=== PATIENT | male | born 1945 | race Caucasian/White ===

== ENCOUNTER 2024-07-10 08:22 | Inpatient (IN) | payer MEDICARE ==
[2024-07-10] VITALS (9 sets, daily range): BP systolic 88–109; BP diastolic 58–68; PULSE 87–126; RESP 11–49; TEMP 97–97.1; O2SAT 93–95
[~2024-07-10] VITALS: Ht 177.8 cm; Wt 102.1 kg
[~2024-07-10 08:22] MED LIST: AMLO5TAB21 PO; APIX5TAB3 PO; ESOM40CA PO; FLUT1DIS10 INH; HYDR-4353 PO; IPRA3AMP9 NEB; LEVO-65 PO; LOSA-422 PO; METH-35 PO; PRED10TA23 PO; [UNRECOGNIZED DRUG - CODE] INH; combivent
[2024-07-10] MEDS ORDERED: diltiazem 5mg/ml 5ml inj. IV ONE (08:34)
[2024-07-10] MEDS: diltiazem 5mg/ml 5ml inj. IV ONE ×2 (08:38→09:24)
[2024-07-10] MEDS: magnesium sulf-water 2g/50mL 50 ML IV ONE (08:41)
[2024-07-10 08:47] LABS: BASOPHILS % (AUTO) 0.1 % (0-1); EOSINOPHILS % (AUTO) 0.1 % (0-6); HEMATOCRIT 47.9 % (42.0-52.0); HEMOGLOBIN 16.4 g/dl (14.0-17.9); LYMPHOCYTES # (AUTO) 1.4 X10'3 (1.1-4.8); LYMPHOCYTES % (AUTO) 4.2 % (21-51); MEAN CORPUSCULAR HEMOGLOBIN 32.9 PG (27.0-31.0); MEAN CORPUSCULAR HGB CONC 34.3 g/dL (33.0-36.5); MEAN CORPUSCULAR VOLUME 95.8 FL (78-98); MEAN PLATELET VOLUME 6.9 FL (7.4-10.4); MONOCYTES # (AUTO) 1.5 X10'3 (0-0.9); MONOCYTES % (AUTO) 4.5 % (2-12); NEUTROPHILS # (AUTO) 30.8 X10'3 (1.8-7.7); NEUTROPHILS % (AUTO) 91.1 % (42-75); PLATELET COUNT 354 X10'3 (140-440); RED CELL DISTRIBUTION WIDTH 14.2 % (11.5-14.5)
[2024-07-10 08:49] LABS: WHITE BLOOD COUNT 33.8 X10'3 (4.5-11.0)
[2024-07-10 08:59] LABS: ALBUMIN 1.7 G/DL (3.4-5.0); ANION GAP 17 (8-16); BLOOD UREA NITROGEN 43 MG/DL (7-18); BUN/CREATININE RATIO 28.9 (10.0-20.0); CALCIUM 9.3 MG/DL (8.5-10.1); CHLORIDE 92 MMOL/L (99-107); CREATININE 1.49 MG/DL (0.60-1.10); GLUCOSE 196 MG/DL (70-104); SODIUM 127 MMOL/L (135-145); TOTAL CARBON DIOXIDE 18.3 MMOL/L (24-32); eCRCL 42 ML/MIN; eGFR 46 ML/MIN
[2024-07-10] MEDS: CefTRIAXone 2gm/D5W 50ml BAG 50 ML IV ONE (08:59)
[2024-07-10 09:01] LABS: POTASSIUM 3.9 MMOL/L (3.5-5.1)
[2024-07-10 09:13] LABS: PLATELET ESTIMATE NORMAL; TOTAL CELLS COUNTED 100
[2024-07-10 09:14] LABS: BURR CELLS 2+; SMUDGE CELLS FEW
[2024-07-10 09:14] LABS: ABG BASE EXCESS -5.8 mmol/L (-2.0-2.0); ABG HCO3 16.4 mmol/L (22.0-26.0); ABG OXYGEN SATURATION 99.3 % (92-98.5); ABG PCO2 (T) 24.9 mmHg (35.0-48.0); ABG PH (T) 7.436 (7.340-7.440); ABG PO2 (T) 256.9 mmHg (75.0-100.0); ALLEN'S TEST POSITIVE; FCOHb 0.1 % (0.5-1.5); FHHb 0.7 % (0.0-5.0); FMetHb 0.4 % (0.0-1.5); FO2Hb 98.8 % (94-97); MODE MASK - BIPAP; PATIENT TEMPERATURE 36.6; RESPIRATORY RATE 10 b/min; TIDAL VOLUME 1035 mL; TOTAL HEMOGLOBIN 15.9 G/dl (14.0-17.9)
[2024-07-10] MEDS: diltiazem-NS 100mg/100ml 100 ML IV SCH (09:26)
[2024-07-10] MEDS: normal saline 1000ML IV soln IVB ONE (09:27)
[2024-07-10] MEDS ORDERED: acetaminophen 650mg rectal suppository RC PRN (12:45)
[2024-07-10] MEDS ORDERED: ondansetron/PF 4mg/2ml inj IV PRN (12:45)
[2024-07-10] MEDS ORDERED: morphine 2 MG/ML inj. syringe IV PRN (12:45)
[2024-07-10] MEDS ORDERED: mag hydrox/Alum hydrox/simeth 30ml oral suspension PO PRN (12:45)
[2024-07-10] MEDS ORDERED: ondansetron 4mg rapidly disintigrating tab PO PRN (12:45)
[2024-07-10] MEDS ORDERED: magnesium hydroxide 30ml (MOM) UD suspension PO PRN (12:45)
[2024-07-10] MEDS ORDERED: diphenhydrAMINE 50 mg/ml inj IV PRN (12:45)
[2024-07-10] MEDS ORDERED: bisacodyl 10mg suppository rectal RC PRN (12:45)
[2024-07-10] MEDS ORDERED: diphenhydrAMINE 25mg capsule PO PRN (12:45)
[2024-07-10] MEDS: normal saline 1000ml 1,000 ML IV SCH (12:45)
[2024-07-10] MEDS ORDERED: acetaminophen 325mg tablet PO PRN ×2 (12:45)
[2024-07-10 13:29] LABS: MAGNESIUM 1.6 MG/DL (1.5-2.4)
[2024-07-10 14:26] LABS: APTT 24 SECONDS (22-32); D-DIMER 3.86 MG/L FEU (0-0.50); INR 1.2 INR; PROTHROMBIN TIME 12.1 SECONDS (9.0-12.0)
[2024-07-10 14:37] LABS: CREATINE KINASE 26 U/L (39-308); THYROID STIMULATING HORMONE 0.95 ulU/ml (0.34-4.50)
[2024-07-10 14:38] LABS: C-REACTIVE PROTEIN 26.95 MG/DL (0.0-0.5)
[2024-07-10] MEDS: docusate sod 100mg capsule PO SCH (20:00)
[2024-07-10] MEDS: dexamethasone 4mg/ml inj IV SCH (20:24)
[2024-07-10] MEDS: ipratropium/albuterol 3ml nebule NEB PRN (20:36)
[2024-07-11] VITALS (26 sets, daily range): BP systolic 88–114; BP diastolic 50–79; PULSE 83–132; RESP 16–32; TEMP 97.2–97.9; O2SAT 93–96
[2024-07-11] MEDS: HYDROcodone/acetaminophen 5mg/325mg tablet PO PRN (00:32)
[2024-07-11 06:11] LABS: BASOPHILS % (AUTO) 0.2 % (0-1); EOSINOPHILS % (AUTO) 0 % (0-6); HEMATOCRIT 39.1 % (42.0-52.0); HEMOGLOBIN 13.3 g/dl (14.0-17.9); LYMPHOCYTES # (AUTO) 0.6 X10'3 (1.1-4.8); LYMPHOCYTES % (AUTO) 2.8 % (21-51); MEAN CORPUSCULAR HEMOGLOBIN 32.7 PG (27.0-31.0); MEAN CORPUSCULAR VOLUME 96.2 FL (78-98); MEAN PLATELET VOLUME 6.8 FL (7.4-10.4); MONOCYTES # (AUTO) 0.7 X10'3 (0-0.9); MONOCYTES % (AUTO) 3.1 % (2-12); NEUTROPHILS # (AUTO) 20.5 X10'3 (1.8-7.7); NEUTROPHILS % (AUTO) 93.9 % (42-75); PLATELET COUNT 231 X10'3 (140-440); RED BLOOD COUNT 4.07 X10'6 (4.70-6.10); RED CELL DISTRIBUTION WIDTH 13.9 % (11.5-14.5); WHITE BLOOD COUNT 21.8 X10'3 (4.5-11.0)
[2024-07-11 06:27] LABS: ALANINE AMINOTRANSFERASE 138 U/L (12-78); ALBUMIN 1.2 G/DL (3.4-5.0); ALBUMIN/GLOBULIN RATIO 0.3 (1.1-1.5); ALKALINE PHOSPHATASE 115 IU/L (46-116); ANION GAP 11 (8-16); ASPARTATE AMINO TRANSFERASE 94 U/L (10-37); BILIRUBIN,TOTAL 0.7 MG/DL (0.1-1.0); BLOOD UREA NITROGEN 31 MG/DL (7-18); BUN/CREATININE RATIO 37.3 (10.0-20.0); CHLORIDE 98 MMOL/L (99-107); CHOL/HDL RATIO 3.4 (0.00-4.99); CHOLESTEROL 67 MG/DL (0-200); CREATININE 0.83 MG/DL (0.60-1.10); GLUCOSE 167 MG/DL (70-104); HDL CHOLESTEROL 20 MG/DL (35-60); LDL CHOLESTEROL 33 MG/DL (50-100); POTASSIUM 3.4 MMOL/L (3.5-5.1); SODIUM 129 MMOL/L (135-145); TOTAL CARBON DIOXIDE 19.6 MMOL/L (24-32); TOTAL PROTEIN 5.6 G/DL (6.4-8.2); TRIGLYCERIDES 74 MG/DL (20-135); eCRCL 76 ML/MIN; eGFR 90 ML/MIN
[2024-07-11] MEDS: pantoprazole 40mg Tablet.DR PO SCH (08:55)
[2024-07-11] MEDS: CefTRIAXone 2gm/D5W 50ml BAG 50 ML IV SCH (08:56)
[2024-07-11] MEDS: azithromycin/NS 500mg/250ml 250 ML IV SCH (08:56)
[2024-07-11] MEDS: guaiFENesin 200mg/20mg codeine phos 10ml UD oral syrup PO PRN (10:24)
[2024-07-11] MEDS: diltiazem-NS 100mg/100ml 100 ML IV SCH (14:08)
[2024-07-11] MEDS ORDERED: potassium Cl 20 mEq SR tablet PO PRN (14:30)
[2024-07-11] MEDS ORDERED: magnesium sulf-water 4G/100mL 100 ML IV PRN (14:30)
[2024-07-11] MEDS ORDERED: magnesium sulf-water 2g/50mL 50 ML IV PRN (14:30)
[2024-07-11] MEDS ORDERED: potassium Cl 40MEQ/1/2NS 520ml 520 ML IV PRN (14:30)
[2024-07-11] MEDS: potassium Cl 20 mEq SR tablet PO PRN (14:52)
[2024-07-11] MEDS: LidoCAINE 2% Topical Jelly 11mL syringe (UROJET) TOP ONE (17:45)
[2024-07-12] VITALS (17 sets, daily range): BP systolic 97–138; BP diastolic 63–85; PULSE 74–111; RESP 18–31; TEMP 97.3–98.6; O2SAT 88–96
[2024-07-12 07:17] LABS: BASOPHILS % (AUTO) 0.1 % (0-1); EOSINOPHILS % (AUTO) 0 % (0-6); HEMATOCRIT 38.4 % (42.0-52.0); HEMOGLOBIN 12.8 g/dl (14.0-17.9); LYMPHOCYTES # (AUTO) 0.8 X10'3 (1.1-4.8); LYMPHOCYTES % (AUTO) 3.9 % (21-51); MEAN CORPUSCULAR HGB CONC 33.4 g/dL (33.0-36.5); MEAN CORPUSCULAR VOLUME 95.9 FL (78-98); MEAN PLATELET VOLUME 6.9 FL (7.4-10.4); MONOCYTES # (AUTO) 0.7 X10'3 (0-0.9); MONOCYTES % (AUTO) 3.5 % (2-12); NEUTROPHILS # (AUTO) 18.1 X10'3 (1.8-7.7); NEUTROPHILS % (AUTO) 92.5 % (42-75); PLATELET COUNT 269 X10'3 (140-440); WHITE BLOOD COUNT 19.6 X10'3 (4.5-11.0)
[2024-07-12 07:18] LABS: ALANINE AMINOTRANSFERASE 152 U/L (12-78); ALBUMIN 1.3 G/DL (3.4-5.0); ALBUMIN/GLOBULIN RATIO 0.3 (1.1-1.5); ALKALINE PHOSPHATASE 104 IU/L (46-116); ANION GAP 7 (8-16); ASPARTATE AMINO TRANSFERASE 99 U/L (10-37); BILIRUBIN,TOTAL 0.4 MG/DL (0.1-1.0); BLOOD UREA NITROGEN 24 MG/DL (7-18); BUN/CREATININE RATIO 34.8 (10.0-20.0); CALCIUM 8.2 MG/DL (8.5-10.1); CHLORIDE 101 MMOL/L (99-107); CREATININE 0.69 MG/DL (0.60-1.10); GLUCOSE 181 MG/DL (70-104); SODIUM 131 MMOL/L (135-145); TOTAL CARBON DIOXIDE 22.6 MMOL/L (24-32); TOTAL PROTEIN 5.8 G/DL (6.4-8.2); eCRCL 91 ML/MIN; eGFR > 90 ML/MIN
[2024-07-12] MEDS: K and/or MAG REPLACEMENT MC SCH (08:00)
[2024-07-12] MEDS: diltiazem CD 180mg cap (once-daily) PO SCH (13:32)
[2024-07-12] MEDS: methylPREDNISolone sod succ 125mg/2ml vial IV ONE (13:32)
[2024-07-12] MEDS: methylPREDNISolone sod succ 125mg/2ml vial IV SCH (16:38)
[2024-07-12] MEDS: morphine 2 MG/ML inj. syringe IV ONE (20:18)
[2024-07-12] MEDS: nitroGLYCERIN 0.4mg SUBLingual tab SL PRN (20:19)
[2024-07-12] MEDS: HYDROmorphone 1 mg/ml syringe IM ONE (20:37)
[2024-07-12] MEDS: aspirin 81mg, enteric-coated 1 TAB TABLET.DR PO ONE ×2 (21:03→21:08)
[2024-07-12] MEDS: apixaban 5mg tablet PO SCH (21:13)
[2024-07-12] MEDS: temazepam 15mg capsule PO PRN (21:13)
[2024-07-13] VITALS (15 sets, daily range): BP systolic 101–136; BP diastolic 63–85; PULSE 81–104; RESP 15–22; TEMP 96.8–98.7; O2SAT 92–97
[2024-07-13] MEDS: pantoprazole 40 MG vial IV ONE (00:29)
[2024-07-13] MEDS: furosemide 40mg/4ml inj IV ONE (00:39)
[2024-07-13] MEDS: diltiazem CD 180mg cap (once-daily) PO ONE (04:39)
[2024-07-13 05:21] LABS: BASOPHILS % (AUTO) 0 % (0-1); EOSINOPHILS % (AUTO) 0 % (0-6); HEMATOCRIT 42.9 % (42.0-52.0); HEMOGLOBIN 14.7 g/dl (14.0-17.9); LYMPHOCYTES # (AUTO) 0.6 X10'3 (1.1-4.8); LYMPHOCYTES % (AUTO) 2.6 % (21-51); MEAN CORPUSCULAR HEMOGLOBIN 32.7 PG (27.0-31.0); MEAN CORPUSCULAR HGB CONC 34.3 g/dL (33.0-36.5); MEAN CORPUSCULAR VOLUME 95.5 FL (78-98); MEAN PLATELET VOLUME 6.4 FL (7.4-10.4); MONOCYTES # (AUTO) 0.5 X10'3 (0-0.9); MONOCYTES % (AUTO) 2.4 % (2-12); NEUTROPHILS # (AUTO) 20.4 X10'3 (1.8-7.7); PLATELET COUNT 284 X10'3 (140-440); RED BLOOD COUNT 4.49 X10'6 (4.70-6.10); RED CELL DISTRIBUTION WIDTH 13.9 % (11.5-14.5); WHITE BLOOD COUNT 21.5 X10'3 (4.5-11.0)
[2024-07-13 05:47] LABS: ALANINE AMINOTRANSFERASE 157 U/L (12-78); ALBUMIN 1.7 G/DL (3.4-5.0); ALBUMIN/GLOBULIN RATIO 0.4 (1.1-1.5); ALKALINE PHOSPHATASE 111 IU/L (46-116); ANION GAP 8 (8-16); ASPARTATE AMINO TRANSFERASE 54 U/L (10-37); BILIRUBIN,TOTAL 0.5 MG/DL (0.1-1.0); BLOOD UREA NITROGEN 20 MG/DL (7-18); CALCIUM 8.5 MG/DL (8.5-10.1); CHLORIDE 99 MMOL/L (99-107); CREATININE 0.91 MG/DL (0.60-1.10); GLUCOSE 209 MG/DL (70-104); SODIUM 134 MMOL/L (135-145); TOTAL CARBON DIOXIDE 26.6 MMOL/L (24-32); TOTAL PROTEIN 6.5 G/DL (6.4-8.2); eCRCL 69 ML/MIN; eGFR 81 ML/MIN
[2024-07-13] MEDS: losartan 25mg tablet PO SCH (08:01)
[2024-07-13] MEDS: EMPAGLIFLOZIN 10 MG TABLET PO SCH (08:02)
[2024-07-13] MEDS: metoprolol succinate 25mg (24-HOUR) SR. Tablet PO SCH (08:02)
[2024-07-13 08:35] LABS: BILIRUBIN,URINE NEGATIVE (Neg); CLARITY,URINE CLEAR (Clear); COLOR,URINE STRAW (Yellow); GLUCOSE, URINE 250 mg/dl (Neg); KETONES,URINE NEGATIVE (Neg); LEUKOCYTE ESTERASE ,URINE NEGATIVE (Neg); NITRITES, URINE NEGATIVE (Neg); OCCULT BLOOD,URINE NEGATIVE (Neg); PROTEIN,URINE NEGATIVE (Neg); UROBILINOGEN,URINE 0.2 E.U/dL (0.2-1.0)
[2024-07-13 08:47] LABS: UA COLLECTION TYPE NON-SPECIFIED
[2024-07-13] MEDS: ipratropium/albuterol 3ml nebule NEB SCH (12:03)
[2024-07-13] MEDS: magnesium Cl slow-release 64mg tablet PO PRN (13:39)
[2024-07-13] MEDS: magnesium sulf-water 2g/50mL 50 ML IV ONE (15:35)
[2024-07-14] VITALS (8 sets, daily range): BP systolic 109–125; BP diastolic 52–76; PULSE 75–95; RESP 16–19; TEMP 97.1–98.1; O2SAT 93–96
[2024-07-14 06:37] LABS: BASOPHILS # (AUTO) 0.1 X10'3 (0-0.2); BASOPHILS % (AUTO) 0.5 % (0-1); EOSINOPHILS % (AUTO) 0.1 % (0-6); HEMATOCRIT 39.2 % (42.0-52.0); HEMOGLOBIN 13.4 g/dl (14.0-17.9); LYMPHOCYTES # (AUTO) 0.5 X10'3 (1.1-4.8); LYMPHOCYTES % (AUTO) 3.7 % (21-51); MEAN CORPUSCULAR HEMOGLOBIN 32.6 PG (27.0-31.0); MEAN CORPUSCULAR HGB CONC 34.1 g/dL (33.0-36.5); MEAN CORPUSCULAR VOLUME 95.6 FL (78-98); MEAN PLATELET VOLUME 6.5 FL (7.4-10.4); MONOCYTES # (AUTO) 0.6 X10'3 (0-0.9); MONOCYTES % (AUTO) 3.8 % (2-12); NEUTROPHILS # (AUTO) 13.3 X10'3 (1.8-7.7); NEUTROPHILS % (AUTO) 91.9 % (42-75); PLATELET COUNT 262 X10'3 (140-440); RED CELL DISTRIBUTION WIDTH 13.7 % (11.5-14.5); WHITE BLOOD COUNT 14.4 X10'3 (4.5-11.0)
[2024-07-14 06:47] LABS: ALANINE AMINOTRANSFERASE 97 U/L (12-78); ALBUMIN 1.6 G/DL (3.4-5.0); ALBUMIN/GLOBULIN RATIO 0.4 (1.1-1.5); ALKALINE PHOSPHATASE 84 IU/L (46-116); ANION GAP 6 (8-16); ASPARTATE AMINO TRANSFERASE 19 U/L (10-37); BILIRUBIN,TOTAL 0.5 MG/DL (0.1-1.0); BLOOD UREA NITROGEN 26 MG/DL (7-18); BUN/CREATININE RATIO 34.7 (10.0-20.0); CALCIUM 7.9 MG/DL (8.5-10.1); CHLORIDE 99 MMOL/L (99-107); CREATININE 0.75 MG/DL (0.60-1.10); GLUCOSE 181 MG/DL (70-104); POTASSIUM 3.9 MMOL/L (3.5-5.1); SODIUM 134 MMOL/L (135-145); TOTAL CARBON DIOXIDE 29.1 MMOL/L (24-32); TOTAL PROTEIN 5.7 G/DL (6.4-8.2); eCRCL 84 ML/MIN; eGFR > 90 ML/MIN
[2024-07-14] MEDS: methylPREDNISolone sod succ 125mg/2ml vial IV SCH (08:37)
[2024-07-14 12:36] LABS: MAGNESIUM 1.7 MG/DL (1.5-2.4)
[2024-07-14] MEDS ORDERED: CEFD300C3 PO (17:52)
[2024-07-14] MEDS ORDERED: METO-384 PO (17:52)
[2024-07-14] MEDS ORDERED: EMPA10TA PO (17:52)
[2024-07-20] MEDS ORDERED: AMI200T PO (10:09)
== END 2024-07-14 13:52 | DRG 871 ==
LOC: ER 08:22 → ED HOLD 12:49 → PCU 3S 17:20
PROVIDERS: ADMIT Family Medicine; ATTEND Family Medicine
PROC: 5A09357 Assistance with Respiratory Ventilation, Less than 24 Consecutive Hours, Continuous Positive Airway Pressure (ICD-10-PCS; 2024-07-10)
PROC: B32T1ZZ Computerized Tomography (CT Scan) of Left Pulmonary Artery using Low Osmolar Contrast (ICD-10-PCS; principal; 2024-07-12)
PROC: B3201ZZ Computerized Tomography (CT Scan) of Thoracic Aorta using Low Osmolar Contrast (ICD-10-PCS; 2024-07-12)
PROC: B32S1ZZ Computerized Tomography (CT Scan) of Right Pulmonary Artery using Low Osmolar Contrast (ICD-10-PCS; 2024-07-12)
PROC: CB1YYZZ Planar Nuclear Medicine Imaging of Respiratory System using Other Radionuclide (ICD-10-PCS; 2024-07-12)
DX: A41.9 Sepsis, unspecified organism (principal); I50.33 Acute on chronic diastolic (congestive) heart failure; J18.9 Pneumonia, unspecified organism; J96.01 Acute respiratory failure with hypoxia; E87.1 Hypo-osmolality and hyponatremia; J44.0 Chronic obstructive pulmonary disease with (acute) lower respiratory infection; J44.1 Chronic obstructive pulmonary disease with (acute) exacerbation; I48.20 Chronic atrial fibrillation, unspecified; G89.4 Chronic pain syndrome; K21.9 Gastro-esophageal reflux disease without esophagitis; Z20.822 Contact with and (suspected) exposure to COVID-19; M54.9 Dorsalgia, unspecified; E78.5 Hyperlipidemia, unspecified; I11.0 Hypertensive heart disease with heart failure; Z88.0 Allergy status to penicillin; Z87.891 Personal history of nicotine dependence; Z79.899 Other long term (current) drug therapy; Z79.01 Long term (current) use of anticoagulants; Z86.16 Personal history of COVID-19; Z85.820 Personal history of malignant melanoma of skin
CPT/HCPCS: 36415; 36600; 71045; 71250; 71275; 74176; 78582; 80048; 80053; 80061; 81003; 82550; 82803; 83036; 83605; 83735; 83880; 84100; 84145; 84443; 84484; 85007; 85018; 85025; 85379; 85610; 85651; 85730; 86140; 87040; 87081; 87811; 93005; 94640; 94660; 94664; 94668; 94760; 96365; 96367; 96375; 97110; 97161; 99285; A4615; A4620; A6213; A6449; A6455; A6590; A9539; A9540; C1758; G0378; J0456; J0696; J1100; J1170; J1940; J2270; J2470; J2919; J3490; J7030

== ENCOUNTER 2024-07-24 08:33 | Inpatient (IN) | payer MEDICARE ==
[2024-07-24] VITALS (21 sets, daily range): BP systolic 80–133; BP diastolic 41–99; PULSE 73–135; RESP 15–31; TEMP 96.8–99; O2SAT 95–100
[~2024-07-24] VITALS: Ht 188 cm; Wt 112.0 kg
[~2024-07-24 08:33] MED LIST changes: +AMI200T PO; +EMPA10TA PO; -LEVO-65 PO; -METH-35 PO; +METO-384 PO
--- NOTE | 2024-07-24 09:03 | NUR ---
MD aware of low BP 72/49 and black tarry stool while taking rectal temp
--- NOTE | 2024-07-24 09:11 | NUR ---
at bedside - she was asked about the limb alert bracelet on the left arm. 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
[2024-07-24 09:57] LABS: ABG BASE EXCESS 0.3 mmol/L (-2.0-3.0); ABG HCO3 23.5 mmol/L (21.0-28.0); ABG OXYGEN SATURATION 98.7 % (94.0-98.0); ABG PH (T) 7.498 (7.350-7.450); ABG PO2 (T) 133.6 mmHg (83.0-108.0); ALLEN'S TEST POSITIVE; FCOHb 0.3 % (0.5-1.5); FHHb 1.3 % (0.0-5.0); FLOW 6 L/min; FMetHb 0.7 % (0.0-1.5); FO2Hb 97.7 % (94.0-98.0); MODE MASK - SIMPLE; TOTAL HEMOGLOBIN 5.7 G/dl (13.5-17.5)
[2024-07-24] MEDS: normal saline 1000ML IV soln IVB ONE (10:27)
--- NOTE | 2024-07-24 10:57 | NUR ---
pT. INCONTINENT OF LG AMT BLACK LOOSE STOOL. PT. CLEANSED AND FOAM PADS PLACED ON BUTTOCKS. BUTTOCKS REDDENED UNABLE TO TAKE PICTURES D/T CAMERA BROKEN NO OTHER CAMERA AVAILABLE IN DEPARTMENT.
--- NOTE | 2024-07-24 11:00 | NUR ---
16 FR TEMP GLASGOW CATH PLACED BY VIKKI RN WITH SL. CLOUDY URINE RETURNED. PT. DIEGO WELL
--- NOTE | 2024-07-24 11:39 | NUR ---
INC. OF SMALL AMT BLACK LOOSE STOOL, CLEANSED AND REPOSITIONED.
[2024-07-24 12:40] LABS: MEAN CORPUSCULAR HEMOGLOBIN 32.8 PG (27.0-31.0); MEAN CORPUSCULAR HGB CONC 31.6 g/dL (33.0-36.5); MEAN CORPUSCULAR VOLUME 103.6 FL (78-98); MEAN PLATELET VOLUME 6.8 FL (7.4-10.4); PLATELET COUNT 246 X10'3 (140-440); RED BLOOD COUNT 1.26 X10'6 (4.70-6.10); RED CELL DISTRIBUTION WIDTH 16.9 % (11.5-14.5)
[2024-07-24] MEDS ORDERED: tranexamic acid inj. 1,000 MG in normal saline 100ml IV soln 90 ML IV ONE (12:40)
[2024-07-24 12:45] LABS: HEMOGLOBIN 4.1 g/dl (14.0-17.9); WHITE BLOOD COUNT 25.2 X10'3 (4.5-11.0)
[2024-07-24] MEDS: tranexamic acid 1gm/0.7% sal. 100 ML IV ONE (12:49)
[2024-07-24 12:56] LABS: ALANINE AMINOTRANSFERASE 24 U/L (12-78); ALBUMIN 1.2 G/DL (3.4-5.0); ALBUMIN/GLOBULIN RATIO 0.6 (1.1-1.5); ALKALINE PHOSPHATASE 27 IU/L (46-116); ANION GAP 10 (8-16); ASPARTATE AMINO TRANSFERASE 13 U/L (10-37); BILIRUBIN,TOTAL 0.3 MG/DL (0.1-1.0); BLOOD UREA NITROGEN 39 MG/DL (7-18); BUN/CREATININE RATIO 42.4 (10.0-20.0); CALCIUM 6.3 MG/DL (8.5-10.1); CHLORIDE 108 MMOL/L (99-107); CREATININE 0.92 MG/DL (0.60-1.10); GLUCOSE 181 MG/DL (70-104); NUCLEATED RED BLOOD CELLS 3 /100WBC (0-0); PLATELET ESTIMATE NORMAL; POTASSIUM 3.8 MMOL/L (3.5-5.1); PRO BRAIN NATRIURETIC PEPTIDE 248 PG/ML (0-450); SMUDGE CELLS FEW; SODIUM 137 MMOL/L (135-145); TOTAL CARBON DIOXIDE 19.3 MMOL/L (24-32); TOTAL CELLS COUNTED 100; TOTAL PROTEIN 3.1 G/DL (6.4-8.2); eCRCL 77 ML/MIN; eGFR 80 ML/MIN
[2024-07-24 12:57] LABS: ANISOCYTOSIS 1+; POLYCHROMASIA 3+
[2024-07-24] MEDS ORDERED: APIX5TAB3 PO (13:19)
[2024-07-24] MEDS ORDERED: MELA3TAB70 PO (13:19)
[2024-07-24] MEDS ORDERED: MOME13HF11 INH (13:19)
[2024-07-24] MEDS ORDERED: AMI200T PO (13:19)
[2024-07-24] MEDS ORDERED: VANC1VIA38 IV (13:19)
[2024-07-24] MEDS ORDERED: CEFE2VIA IV (13:19)
[2024-07-24] MEDS ORDERED: ATR0.5NEB IH (13:19)
[2024-07-24] MEDS ORDERED: CLOT10TR6 PO (13:19)
[2024-07-24] MEDS ORDERED: PANT-47 PO (13:19)
[2024-07-24] MEDS ORDERED: METO-384 PO (13:19)
[2024-07-24] MEDS ORDERED: pantoprazole 40mg IV 80 MG in normal saline 100ml IV soln 100 ML IV ONE (13:25)
[2024-07-24] MEDS: normal saline 1000ml 1,000 ML IVB ONE (13:30)
[2024-07-24] MEDS ORDERED: ipratropium 0.5 MG/2.5ML nebule IH PRN (13:30)
[2024-07-24] MEDS: clotrimazole 10mg troche MM SCH (14:00)
--- NOTE | 2024-07-24 14:02 | NUR ---
1ST UNIT PRBC INFUSED THROUGH RAPID INFUSER, RN X2 (GAVIN) AND DR. WALTERS AT BEDSIDE THROUGHOUT TRANSFUSION. PT. DIEGO WELL WITHOUT REACTION NOTED.
[2024-07-24] MEDS ORDERED: potassium Cl 40MEQ/1/2NS 520ml 520 ML IV PRN ×2 (14:10→15:25)
[2024-07-24] MEDS ORDERED: acetaminophen 325mg tablet PO PRN ×2 (14:10→15:25)
[2024-07-24] MEDS ORDERED: magnesium hydroxide 30ml (MOM) UD suspension PO PRN ×2 (14:10→15:25)
[2024-07-24] MEDS ORDERED: mag hydrox/Alum hydrox/simeth 30ml oral suspension PO PRN ×2 (14:10→15:25)
[2024-07-24] MEDS: normal saline 1000ml 1,000 ML IV SCH (14:10)
[2024-07-24] MEDS ORDERED: acetaminophen 650mg rectal suppository RC PRN (14:10)
[2024-07-24] MEDS: pantoprazole 40 MG vial IV ONE (14:53)
[2024-07-24] MEDS: pantoprazole 40MG/NS 100ML BAG 100 ML IV SCH (14:54)
--- NOTE | 2024-07-24 15:10 | NUR ---
RELIEVING RN FOR LUNCH, PT IS RESTING QUIETLY ON GURNEY, GCS 15 ALERT AND ORIENTED X3, RESP EVEN AND UNLABORED, SKIN IS NOW PINK, WARM AND DRY AFTER 2 UNITS OF PRBC. PT IS NOW RECEIVING FFP, USING DOWN TIME FORM. PT IS TOLERATING INFUSION WELL, NO S/S OF RX TO BLOOD PRODUCT
[2024-07-24] MEDS ORDERED: magnesium sulf-water 4G/100mL 100 ML IV PRN (15:25)
[2024-07-24] MEDS ORDERED: ondansetron/PF 4mg/2ml inj IV PRN (15:25)
[2024-07-24] MEDS ORDERED: potassium Cl 20 mEq SR tablet PO PRN ×2 (15:25)
[2024-07-24] MEDS ORDERED: magnesium Cl slow-release 64mg tablet PO PRN (15:25)
[2024-07-24] MEDS ORDERED: magnesium sulf-water 2g/50mL 50 ML IV PRN (15:25)
[2024-07-24 16:25] LABS: MAGNESIUM 1.4 MG/DL (1.5-2.4); POTASSIUM 4.3 MMOL/L (3.5-5.1)
--- NOTE | 2024-07-24 16:46 | NUR ---
RECEIVED REPORT FROM FELIX ARRIAGA RN
--- NOTE | 2024-07-24 17:47 | NUR ---
Patients bedside, per all of patients belongings are still at [facility]
--- NOTE | 2024-07-24 18:28 | NUR ---
Patient in room CICU 2013. I have received report from Christi Brand RN and had the opportunity to ask questions and assume patient care.
[2024-07-24 18:34] LABS: OCCULT BLOOD STOOL POSITIVE (Neg)
[2024-07-24] MEDS: HUM PROTHROMB CPLX-LANS 2,000 UNIT in IV piggyback 80 ML IV ONE (19:10)
[2024-07-24] MEDS: budesonide 0.5mg/2ml UD nebule IH SCH (19:32)
[2024-07-24] MEDS: albuterol 2.5 MG/3 ML nebule NEB PRN (19:32)
[2024-07-24 19:44] LABS: ALANINE AMINOTRANSFERASE 47 U/L (12-78); ALBUMIN 1.4 G/DL (3.4-5.0); ALBUMIN/GLOBULIN RATIO 0.7 (1.1-1.5); ALKALINE PHOSPHATASE 30 IU/L (46-116); ANION GAP 6 (8-16); ASPARTATE AMINO TRANSFERASE 53 U/L (10-37); BILIRUBIN,TOTAL 0.6 MG/DL (0.1-1.0); BLOOD UREA NITROGEN 47 MG/DL (7-18); BUN/CREATININE RATIO 51.6 (10.0-20.0); CALCIUM 6.7 MG/DL (8.5-10.1); CHLORIDE 106 MMOL/L (99-107); CREATININE 0.91 MG/DL (0.60-1.10); GLUCOSE 192 MG/DL (70-104); MAGNESIUM 1.2 MG/DL (1.5-2.4); PHOSPHORUS 2.8 MG/DL (2.3-4.5); POTASSIUM 4.8 MMOL/L (3.5-5.1); SODIUM 135 MMOL/L (135-145); TOTAL CARBON DIOXIDE 22.6 MMOL/L (24-32); TOTAL PROTEIN 3.3 G/DL (6.4-8.2); eCRCL 78 ML/MIN; eGFR 81 ML/MIN
[2024-07-24] MEDS ORDERED: non-formulary drug (Mometasone/Formoterol (Dulera 200 Mcg/5 Mcg Inhaler) 2 PUFFS) INH SCH (20:00)
[2024-07-24] MEDS ORDERED: CEFEPIME HCL IV SCH (20:00)
[2024-07-24] MEDS: K and/or MAG REPLACEMENT MC SCH (20:00)
[2024-07-24] MEDS ORDERED: vancomycin 1,000mg inj IV SCH (20:00)
[2024-07-24] MEDS: docusate sod 100mg capsule PO SCH (20:00)
[2024-07-24] MEDS ORDERED: K and/or MAG REPLACEMENT MC SCH (20:00)
[2024-07-24] MEDS ORDERED: docusate sod 100mg capsule PO SCH (20:00)
[2024-07-24 20:35] LABS: BASOPHILS % (AUTO) 0.1 % (0-1); LYMPHOCYTES # (AUTO) 3.8 X10'3 (1.1-4.8); MEAN CORPUSCULAR VOLUME 94.4 FL (78-98); NEUTROPHILS % (AUTO) 78.4 % (42-75)
[2024-07-24 20:36] LABS: EOSINOPHILS % (AUTO) 0.2 % (0-6); HEMATOCRIT 24.5 % (42.0-52.0); HEMOGLOBIN 8.1 g/dl (14.0-17.9); LYMPHOCYTES % (AUTO) 13.4 % (21-51); MEAN CORPUSCULAR HEMOGLOBIN 31.2 PG (27.0-31.0); MEAN CORPUSCULAR HGB CONC 33.1 g/dL (33.0-36.5); MEAN PLATELET VOLUME 6.9 FL (7.4-10.4); MONOCYTES # (AUTO) 2.2 X10'3 (0-0.9); MONOCYTES % (AUTO) 7.9 % (2-12); NEUTROPHILS # (AUTO) 22.1 X10'3 (1.8-7.7); PLATELET COUNT 157 X10'3 (140-440); RED BLOOD COUNT 2.59 X10'6 (4.70-6.10)
[2024-07-24] MEDS: vancomycin/NS 1 GM ADD-VANTAGE 250 ML IV SCH (20:36)
--- NOTE | 2024-07-24 20:36 | NUR ---
MD Coronel updated with current patient status on the phone. MD informed that patient has soft blood pressure with MAP occasionally below 60 despite 4 units of PRBCs given, informed that patient otherwise stable. New orders received from MD. Will follow MD orders, will continue to monitor patient closely.
[2024-07-24 20:42] LABS: WHITE BLOOD COUNT 28.2 X10'3 (4.5-11.0)
--- NOTE | 2024-07-24 20:58 | NUR ---
MD Coronel called and notified regarding patient's complaint of chest pain and BP now with MAP consistently below 60. MD also updated with patient's increas work of breathing and result of CXR just done, which is more white than prior CXR done on . New order received for 2 units of PRBC on standby and to call MD with result of next set of CBC labs to assess whether more PRBCs are indicated or not. New order received to start patient on levophed to maintain MAP above 65. New order for lasix also received and to give as tolerated. Will follow MD Orders, will continue to monitor patient closely and call/update MD with any new critical changes to patient status. Addendum: 07/24/24 at 2329 by Amalia Patrick RN Order for amiodarone protocol orders received as well. Will start IV amiodarone per protocol orders.
[2024-07-24] MEDS: Melatonin 3mg tablet PO SCH (21:00)
[2024-07-24 21:23] LABS: ABG BASE EXCESS -3.3 mmol/L (-2.0-3.0); ABG HCO3 19.2 mmol/L (21.0-28.0); ABG OXYGEN SATURATION 98.7 % (94.0-98.0); ABG PCO2 (T) 26.3 mmHg (35.0-48.0); ABG PH (T) 7.484 (7.350-7.450); ABG PO2 (T) 124.1 mmHg (83.0-108.0); ALLEN'S TEST Modified; FCOHb 0.6 % (0.5-1.5); FHHb 1.3 % (0.0-5.0); FMetHb 0.3 % (0.0-1.5); FO2Hb 97.8 % (94.0-98.0); PATIENT TEMPERATURE 37.5; TOTAL HEMOGLOBIN 8.2 G/dl (13.5-17.5)
[2024-07-24] MEDS: furosemide 20 MG/2 ML vial IV ONE (21:23)
[2024-07-24] MEDS: NORepinephrine 8mg/ 250ml NS 250 ML IV PRN (21:24)
[2024-07-24] MEDS: amiodarone 150mg/dext, iso-os 100 ML IV ONE (21:48)
[2024-07-24] MEDS: cefepime 2g/NS 100ml ADVANTAGE 100 ML IV SCH (21:48)
[2024-07-24] MEDS: amiodarone/D5 360MG/200ML BAG 200 ML IV SCH (21:56)
[2024-07-24] MEDS: morphine 2 MG/ML inj. syringe IV PRN (22:35)
[2024-07-24] MEDS: magnesium sulf-water 2g/50mL 50 ML IV PRN (22:51)
[2024-07-24] MEDS: morphine 2 MG/ML inj. syringe IV ONE (23:20)
--- NOTE | 2024-07-24 23:20 | NUR ---
MD Debow at bedside via tele monitor rounding on patient. MD updated on current patient status, including current heart rate in atrial fibrillation in 120s when calm, 130s/140s when awake and agitated. New order received for. Will continue to monitor patient closely and update MD of any critical changes.
[2024-07-25] VITALS (49 sets, daily range): BP systolic 45–144; BP diastolic 20–78; PULSE 80–129; RESP 11–28; TEMP 98–99.4; O2SAT 20–100
[2024-07-25 00:09] LABS: HEMOGLOBIN 7.7 g/dl (14.0-17.9); RED CELL DISTRIBUTION WIDTH 14.9 % (11.5-14.5)
[2024-07-25 00:11] LABS: BASOPHILS # (AUTO) 0.1 X10'3 (0-0.2); BASOPHILS % (AUTO) 0.2 % (0-1); EOSINOPHILS % (AUTO) 0.1 % (0-6); HEMATOCRIT 23.2 % (42.0-52.0); LYMPHOCYTES # (AUTO) 5.3 X10'3 (1.1-4.8); LYMPHOCYTES % (AUTO) 15.3 % (21-51); MEAN CORPUSCULAR HEMOGLOBIN 31.2 PG (27.0-31.0); MEAN CORPUSCULAR HGB CONC 33.1 g/dL (33.0-36.5); MEAN CORPUSCULAR VOLUME 94.3 FL (78-98); MEAN PLATELET VOLUME 7.1 FL (7.4-10.4); MONOCYTES # (AUTO) 2.9 X10'3 (0-0.9); MONOCYTES % (AUTO) 8.3 % (2-12); NEUTROPHILS # (AUTO) 26.4 X10'3 (1.8-7.7); NEUTROPHILS % (AUTO) 76.1 % (42-75); PLATELET COUNT 179 X10'3 (140-440); RED BLOOD COUNT 2.45 X10'6 (4.70-6.10)
[2024-07-25] MEDS: ondansetron/PF 4mg/2ml inj IV PRN (00:13)
[2024-07-25 00:16] LABS: WHITE BLOOD COUNT 34.6 X10'3 (4.5-11.0)
[2024-07-25 00:37] LABS: NUCLEATED RED BLOOD CELLS 9 /100WBC (0-0); PLATELET ESTIMATE NORMAL; TOTAL CELLS COUNTED 100
[2024-07-25 00:38] LABS: HYPERSEGMENTED NEUTROPHILS FEW; POLYCHROMASIA 3+; SMUDGE CELLS FEW
[2024-07-25] MEDS: magnesium sulf-water 4G/100mL 100 ML IV PRN (00:52)
[2024-07-25] MEDS: morphine 4 MG/ML inj SYRINge IV PRN (02:52)
[2024-07-25 03:13] LABS: BASOPHILS # (AUTO) 0.1 X10'3 (0-0.2); BASOPHILS % (AUTO) 0.2 % (0-1); HEMATOCRIT 25.8 % (42.0-52.0)
[2024-07-25 03:15] LABS: EOSINOPHILS # (AUTO) 0.1 X10'3 (0-0.9); EOSINOPHILS % (AUTO) 0.2 % (0-6); HEMOGLOBIN 8.4 g/dl (14.0-17.9); LYMPHOCYTES # (AUTO) 6.5 X10'3 (1.1-4.8); LYMPHOCYTES % (AUTO) 15.7 % (21-51); MEAN CORPUSCULAR HEMOGLOBIN 30.2 PG (27.0-31.0); MEAN CORPUSCULAR HGB CONC 32.6 g/dL (33.0-36.5); MEAN CORPUSCULAR VOLUME 92.6 FL (78-98); MONOCYTES # (AUTO) 3.7 X10'3 (0-0.9); NEUTROPHILS # (AUTO) 30.8 X10'3 (1.8-7.7); NEUTROPHILS % (AUTO) 74.9 % (42-75); PLATELET COUNT 178 X10'3 (140-440); RED BLOOD COUNT 2.79 X10'6 (4.70-6.10); RED CELL DISTRIBUTION WIDTH 15.3 % (11.5-14.5)
[2024-07-25 03:19] LABS: WHITE BLOOD COUNT 41.2 X10'3 (4.5-11.0)
[2024-07-25 03:26] LABS: ALANINE AMINOTRANSFERASE 78 U/L (12-78); ALBUMIN 1.3 G/DL (3.4-5.0); ALBUMIN/GLOBULIN RATIO 0.7 (1.1-1.5); ALKALINE PHOSPHATASE 27 IU/L (46-116); ANION GAP 9 (8-16); ASPARTATE AMINO TRANSFERASE 63 U/L (10-37); BILIRUBIN,TOTAL 0.7 MG/DL (0.1-1.0); BLOOD UREA NITROGEN 53 MG/DL (7-18); BUN/CREATININE RATIO 43.4 (10.0-20.0); CALCIUM 6.8 MG/DL (8.5-10.1); CHLORIDE 106 MMOL/L (99-107); CREATININE 1.22 MG/DL (0.60-1.10); GLUCOSE 305 MG/DL (70-104); MAGNESIUM 2.4 MG/DL (1.5-2.4); SODIUM 135 MMOL/L (135-145); TOTAL CARBON DIOXIDE 19.9 MMOL/L (24-32); TOTAL PROTEIN 3.3 G/DL (6.4-8.2); eCRCL 58 ML/MIN; eGFR 57 ML/MIN
--- NOTE | 2024-07-25 04:00 | NUR ---
MD Coronel called and updated regarding patient's current status and patient condition changed. informed that patient is once again becoming SOB, has been requiring increase in levophed, and is still in atrial fibrillation. New order received to start patient on vasopressin, to take patient to get CTA of chest/abdomen/pelvis done, and to infuse 1 unit PRBC even though HH 8.4 and 25.8. also updated regarding patient's LA of 4.2 and WBC increasing to 41.2. No new orders for these results. Will follow MD orders, will continue to monitor patient closely.
[2024-07-25] MEDS: sodium bicarbonate (8.4%) 1 mEq/ml syringe ONE (04:13)
[2024-07-25] MEDS: sodium bicarbonate (8.4%) 1 mEq/ml syringe IV ONE (04:23)
[2024-07-25] MEDS: vasopressin inj. 40 UNIT in normal saline 50ml IV soln 38 ML IV SCH (04:28)
[2024-07-25] MEDS ORDERED: iohexol 350MG/ML 100ml bottle IV ONE (04:33)
[2024-07-25] MEDS ORDERED: glucagon, human recombinant 1mg kit SUBCUT PRN (05:45)
[2024-07-25] MEDS ORDERED: dextrose 50%-water 50ml dispensing syringe IV PRN ×2 (05:45)
[2024-07-25] MEDS ORDERED: DEXTROSE 15 GM of carb/4 tabs (each vial/BOTTLE has 4 tablets) PO PRN ×2 (05:45)
[2024-07-25] MEDS: furosemide 20 MG/2 ML vial IV ONE (06:02)
--- NOTE | 2024-07-25 06:19 | NUR ---
Problems reprioritized. Patient report given, questions answered & plan of care reviewed with Christi Brand RN.
--- NOTE | 2024-07-25 06:30 | NUR ---
Patient in room CICU 2013. I have received report from Amalia JACK and had the opportunity to ask questions and assume patient care.
--- NOTE | 2024-07-25 06:45 | NUR ---
Patient had a moderate maroon stool
[2024-07-25] MEDS: amiodarone 200mg tablet PO SCH (07:37)
[2024-07-25 07:51] LABS: BASOPHILS # (AUTO) 0.1 X10'3 (0-0.2); EOSINOPHILS % (AUTO) 0.1 % (0-6); HEMATOCRIT 26.1 % (42.0-52.0); HEMOGLOBIN 8.6 g/dl (14.0-17.9); MEAN PLATELET VOLUME 7.1 FL (7.4-10.4); RED BLOOD COUNT 2.82 X10'6 (4.70-6.10)
[2024-07-25 07:52] LABS: BASOPHILS % (AUTO) 0.2 % (0-1); LYMPHOCYTES # (AUTO) 4.4 X10'3 (1.1-4.8); LYMPHOCYTES % (AUTO) 10.8 % (21-51); MEAN CORPUSCULAR HEMOGLOBIN 30.5 PG (27.0-31.0); MEAN CORPUSCULAR HGB CONC 32.9 g/dL (33.0-36.5); MEAN CORPUSCULAR VOLUME 92.7 FL (78-98); MONOCYTES # (AUTO) 3.6 X10'3 (0-0.9); MONOCYTES % (AUTO) 8.8 % (2-12); NEUTROPHILS # (AUTO) 32.9 X10'3 (1.8-7.7); NEUTROPHILS % (AUTO) 80.1 % (42-75); PLATELET COUNT 149 X10'3 (140-440); RED CELL DISTRIBUTION WIDTH 15.3 % (11.5-14.5)
[2024-07-25 08:00] LABS: WHITE BLOOD COUNT 41.1 X10'3 (4.5-11.0)
--- NOTE | 2024-07-25 08:06 | NUR ---
attempted to draw lactic from central line, picc line and Uma JACK attempted to draw from AC with a butterfly unable to obtain blood to send down lactic acid. Called lab they will send a ramp and cargo supervisor as soon as they can
[2024-07-25] MEDS: INSULIN LISPRO 100 UNIT/ML INSULN.PEN MULTI-DOSE SQ SCH (08:19)
[2024-07-25] MEDS ORDERED: METH-798 PO (09:38)
[2024-07-25] MEDS ORDERED: ALBU18HF2 IH (09:38)
[2024-07-25 09:45] LABS: NUCLEATED RED BLOOD CELLS 7 /100WBC (0-0); TOTAL CELLS COUNTED 100
[2024-07-25 09:46] LABS: PLATELET ESTIMATE NORMAL; SMUDGE CELLS 1+
[2024-07-25 09:48] LABS: POLYCHROMASIA FEW
[2024-07-25 09:49] LABS: BURR CELLS FEW
[2024-07-25] MEDS: ringers solution, lacted 1,000 ML IV SCH (10:20)
[2024-07-25] MEDS: albumin (human) 25% 100ml IV 400 ML IV ONE (10:42)
--- NOTE | 2024-07-25 10:49 | NUR ---
PRESSURE ULCER EDUCATION: DEFINITION: A pressure ulcer is an area of skin that breaks down when you stay in one position too long. The constant pressure against the skin reduces the blood flow to that area and the affected tissue dies. CAUSES: "Being bedridden or in a wheelchair "Fragile skin "Having a chronic condition, such as diabetes or vascular disease "Inability to move certain parts of your body without assistance "Older age "Incontinence of urine or stool SYMPTOMS: "A reddened area that DOES NOT turn white when pressed on - this can be the beginning of a pressure ulcer "A blister, deep sore or a crater - these can be advanced pressure ulcers FIRST AID: "Relieve the pressure on this area "Keep the area clean and dry "Call your primary doctor if you see any of the above symptoms "DO NOT massage the area "DO NOT use a donut shaped or ring shaped pillow- these actually interfere with the blood flow and cause complications PREVENTION: "Check for pressure ulcers everyday "Change position at least every two hours to relieve pressure "Use items that help relieve pressure- pillows, sheepskin, foam padding, and powders. "Keep skin clean and dry "Eat healthy well balanced meals "Exercise daily IF YOU SEE ANY OF THESE SYMPTOMS WHILE IN THE HOSPITAL - TELL YOUR NURSE IMMEDIATELY. IF YOU SEE ANY OF THESE SYMPTOMS WHILE AT HOME OR HAVE ANY QUESTIONS OR CONCERNS ABOUT PRESSURE ULCERS - CALL YOUR PRIMARY DOCTOR IMMEDIATELY. Addendum: 07/25/24 at 1049 by Estrellita Joseph RN Amended: Links added.
[2024-07-25] MEDS ORDERED: CELE-127 PO (10:50)
[2024-07-25] MEDS ORDERED: HYDR12.55 PO (10:50)
[2024-07-25] MEDS ORDERED: AMLO5TAB16 PO (10:50)
[2024-07-25] MEDS ORDERED: ATOR20TA66 PO (10:50)
[2024-07-25] MEDS ORDERED: DUTA0.5C36 PO (10:50)
[2024-07-25] MEDS ORDERED: LOSA100T58 PO (10:50)
[2024-07-25] MEDS ORDERED: TEST200V33 IM (10:50)
[2024-07-25] MEDS ORDERED: FLUT1BLS3 PO (10:50)
[2024-07-25] MEDS ORDERED: COLC0.6T72 PO (10:52)
[2024-07-25] MEDS: albumin (Human) 5% 250ml 250 ML IV SCH (12:48)
[2024-07-25 13:27] LABS: BASOPHILS % (AUTO) 0 % (0-1); EOSINOPHILS % (AUTO) 0.1 % (0-6); LYMPHOCYTES # (AUTO) 3.7 X10'3 (1.1-4.8); LYMPHOCYTES % (AUTO) 11.9 % (21-51); MEAN CORPUSCULAR HEMOGLOBIN 30.2 PG (27.0-31.0); MEAN CORPUSCULAR HGB CONC 32.7 g/dL (33.0-36.5); MEAN CORPUSCULAR VOLUME 92.2 FL (78-98); MEAN PLATELET VOLUME 6.6 FL (7.4-10.4); MONOCYTES # (AUTO) 2.3 X10'3 (0-0.9); MONOCYTES % (AUTO) 7.4 % (2-12); NEUTROPHILS # (AUTO) 25.2 X10'3 (1.8-7.7); NEUTROPHILS % (AUTO) 80.6 % (42-75); PLATELET COUNT 116 X10'3 (140-440); RED BLOOD COUNT 2.05 X10'6 (4.70-6.10); RED CELL DISTRIBUTION WIDTH 15.7 % (11.5-14.5)
[2024-07-25 13:29] LABS: HEMOGLOBIN 6.2 g/dl (14.0-17.9); WHITE BLOOD COUNT 31.3 X10'3 (4.5-11.0)
[2024-07-25 13:30] LABS: HEMATOCRIT 18.9 % (42.0-52.0)
--- NOTE | 2024-07-25 13:34 | NUR ---
called Dr. Quiñonez with critical results, wbc 31.1 H.H 6.2/18.9 new orders transfuse 3 units and check ptt/pt/inr
[2024-07-25] MEDS: diphenhydrAMINE 50 mg/ml inj IV PRN (13:42)
[2024-07-25] MEDS: amiodarone/D5 360MG/200ML BAG 200 ML IV SCH (13:43)
[2024-07-25 14:57] LABS: APTT 33 SECONDS (22-32); INR 1.5 INR; PROTHROMBIN TIME 15.6 SECONDS (9.0-12.0)
[2024-07-25] MEDS: metroNIDAZOLE-Flagyl 500mg/NS 100 ML IV SCH (16:13)
--- NOTE | 2024-07-25 16:23 | NUR ---
Malnutrition consult: Per RN malnutrition screen pt reports 2-13 pound wt loss and decreased PO intake/appetite though mostly consumes junk food at home. Wt this admit of 106 kg is ~120% of IBW. Wt this admit if currently up from prior wt of 102.1kg on 07/11/24 and 100kg on 06/28/24; wt hx of 115.1kg on 07/16/24 appears to be an outliner. Per H&P pt appears well developed and well nourished. RD visualized pt during CCR and pt did in fact appeared nourished with no signs of fat or muscle wasting at this time. Pt lacks a minimum of two malnutrition criteria at this time though will continue to monitor for signs and symptoms. Addendum: 07/25/24 at [address] Amended: Links added.
[2024-07-25] MEDS: water for injection, sterile 100 ML in HUM PROTHROMB CPLX-LANS 2,500 UNIT IV ONE (17:17)
--- NOTE | 2024-07-25 18:19 | NUR ---
Problems reprioritized. Patient report given, questions answered & plan of care reviewed with Amalia JACK.
--- NOTE | 2024-07-25 21:23 | NUR ---
MD Coronel called and notified regarding patient's critical HH of 5.5 and 16.3 after receiving 2 units of PRBCs from dayshift. also notified that patient's MAP has continued to remain under 65 despite increasing levo per protocol order. New order received for 2 more units of PRBCs. Will follow MD orders, will continue to monitor patient closely.
[2024-07-25 21:24] LABS: BASOPHILS % (AUTO) 0.1 % (0-1); EOSINOPHILS # (AUTO) 0.1 X10'3 (0-0.9); EOSINOPHILS % (AUTO) 0.4 % (0-6); MONOCYTES # (AUTO) 0.9 X10'3 (0-0.9)
[2024-07-25 21:25] LABS: LYMPHOCYTES # (AUTO) 2.5 X10'3 (1.1-4.8); LYMPHOCYTES % (AUTO) 16.5 % (21-51); MEAN CORPUSCULAR HEMOGLOBIN 30.5 PG (27.0-31.0); MEAN CORPUSCULAR HGB CONC 33.4 g/dL (33.0-36.5); MEAN CORPUSCULAR VOLUME 91.3 FL (78-98); MEAN PLATELET VOLUME 6.6 FL (7.4-10.4); MONOCYTES % (AUTO) 6.1 % (2-12); NEUTROPHILS # (AUTO) 11.9 X10'3 (1.8-7.7); NEUTROPHILS % (AUTO) 76.9 % (42-75); PLATELET COUNT 84 X10'3 (140-440); RED BLOOD COUNT 1.79 X10'6 (4.70-6.10); RED CELL DISTRIBUTION WIDTH 14.9 % (11.5-14.5); WHITE BLOOD COUNT 15.4 X10'3 (4.5-11.0)
[2024-07-25 21:33] LABS: HEMATOCRIT 16.3 % (42.0-52.0); HEMOGLOBIN 5.5 g/dl (14.0-17.9)
[2024-07-25 21:50] LABS: ALANINE AMINOTRANSFERASE 211 U/L (12-78); ALBUMIN 2.5 G/DL (3.4-5.0); ALBUMIN/GLOBULIN RATIO 2.3 (1.1-1.5); ALKALINE PHOSPHATASE 16 IU/L (46-116); ANION GAP 7 (8-16); ASPARTATE AMINO TRANSFERASE 227 U/L (10-37); BILIRUBIN,TOTAL 0.8 MG/DL (0.1-1.0); BLOOD UREA NITROGEN 43 MG/DL (7-18); BUN/CREATININE RATIO 46.2 (10.0-20.0); CALCIUM 6.9 MG/DL (8.5-10.1); CHLORIDE 109 MMOL/L (99-107); CREATININE 0.93 MG/DL (0.60-1.10); GLUCOSE 147 MG/DL (70-104); MAGNESIUM 1.8 MG/DL (1.5-2.4); PHOSPHORUS 2.2 MG/DL (2.3-4.5); POTASSIUM 3.5 MMOL/L (3.5-5.1); SODIUM 140 MMOL/L (135-145); TOTAL CARBON DIOXIDE 24.1 MMOL/L (24-32); TOTAL PROTEIN 3.6 G/DL (6.4-8.2); eCRCL 76 ML/MIN; eGFR 79 ML/MIN
[2024-07-25 22:05] LABS: APTT 34 SECONDS (22-32); INR 1.3 INR; PROTHROMBIN TIME 13.6 SECONDS (9.0-12.0)
[2024-07-25] MEDS ORDERED: NORepinephrine 8mg/ 250ml NS 250 ML IV SCH (22:45)
[2024-07-26] VITALS (27 sets, daily range): BP systolic 101–164; BP diastolic 32–75; PULSE 63–103; RESP 13–30; TEMP 97.8–99.3; O2SAT 98–100
[2024-07-26] MEDS: NORepinephrine 32 MG in normal saline 250ml IV soln 218 ML IV SCH (00:26)
--- NOTE | 2024-07-26 01:10 | NUR ---
MD. Coronel called to report critical hemoglobin and hematocrit of 6.2 and 18.4 after receiving 2 units of PRBCs. Informed that patient has been having large/copious amounts of red, very loose stool/ bowel movements. Also informed that the platelets are 84, same as previous lab results done at 2100. New order received for 2 more units of PRBCs, 1 unit of platelets, and 1 unit of FFP, as well as 2 amps of bicarb and to start patient on bicarb drip. MD states he will contact GI to do EGD as soon as possible. Will follow MD orders, will continue to monitor patient closely.
[2024-07-26 01:32] LABS: EOSINOPHILS # (AUTO) 0.1 X10'3 (0-0.9); EOSINOPHILS % (AUTO) 0.5 % (0-6); RED CELL DISTRIBUTION WIDTH 14.8 % (11.5-14.5)
[2024-07-26 01:34] LABS: BASOPHILS % (AUTO) 0.2 % (0-1); LYMPHOCYTES # (AUTO) 2.7 X10'3 (1.1-4.8); LYMPHOCYTES % (AUTO) 13.1 % (21-51); MEAN CORPUSCULAR HEMOGLOBIN 30.7 PG (27.0-31.0); MEAN CORPUSCULAR HGB CONC 33.6 g/dL (33.0-36.5); MEAN CORPUSCULAR VOLUME 91.4 FL (78-98); MEAN PLATELET VOLUME 6.7 FL (7.4-10.4); MONOCYTES # (AUTO) 1.3 X10'3 (0-0.9); MONOCYTES % (AUTO) 6.4 % (2-12); NEUTROPHILS # (AUTO) 16.3 X10'3 (1.8-7.7); NEUTROPHILS % (AUTO) 79.8 % (42-75); PLATELET COUNT 84 X10'3 (140-440); RED BLOOD COUNT 2.01 X10'6 (4.70-6.10); WHITE BLOOD COUNT 20.4 X10'3 (4.5-11.0)
[2024-07-26 01:39] LABS: HEMATOCRIT 18.4 % (42.0-52.0); HEMOGLOBIN 6.2 g/dl (14.0-17.9)
[2024-07-26 01:41] LABS: APTT 40 SECONDS (22-32); INR 1.4 INR; PROTHROMBIN TIME 14.6 SECONDS (9.0-12.0)
[2024-07-26 02:31] LABS: ALANINE AMINOTRANSFERASE 179 U/L (12-78); ALBUMIN 2.4 G/DL (3.4-5.0); ALBUMIN/GLOBULIN RATIO 2.4 (1.1-1.5); ALKALINE PHOSPHATASE 15 IU/L (46-116); ANION GAP 5 (8-16); ASPARTATE AMINO TRANSFERASE 162 U/L (10-37); BILIRUBIN,TOTAL 1.2 MG/DL (0.1-1.0); BLOOD UREA NITROGEN 37 MG/DL (7-18); BUN/CREATININE RATIO 44.6 (10.0-20.0); CALCIUM 6.8 MG/DL (8.5-10.1); CHLORIDE 114 MMOL/L (99-107); CREATININE 0.83 MG/DL (0.60-1.10); GLUCOSE 163 MG/DL (70-104); MAGNESIUM 1.6 MG/DL (1.5-2.4); PHOSPHORUS 1.9 MG/DL (2.3-4.5); POTASSIUM 3.6 MMOL/L (3.5-5.1); SODIUM 143 MMOL/L (135-145); TOTAL CARBON DIOXIDE 23.8 MMOL/L (24-32); TOTAL PROTEIN 3.4 G/DL (6.4-8.2); eCRCL 85 ML/MIN; eGFR 90 ML/MIN
[2024-07-26 03:00] LABS: NUCLEATED RED BLOOD CELLS 5 /100WBC (0-0); PLATELET ESTIMATE DECREASED; TOTAL CELLS COUNTED 100
[2024-07-26 03:03] LABS: BURR CELLS FEW; POLYCHROMASIA 1+
[2024-07-26 03:07] LABS: ABG BASE EXCESS -1.9 mmol/L (-2.0-3.0); ABG HCO3 21.2 mmol/L (21.0-28.0); ABG OXYGEN SATURATION 98.9 % (94.0-98.0); ABG PCO2 (T) 28.6 mmHg (35.0-48.0); ABG PH (T) 7.487 (7.350-7.450); ABG PO2 (T) 133.2 mmHg (83.0-108.0); ALLEN'S TEST POSITIVE; FCOHb 0.9 % (0.5-1.5); FHHb 1.1 % (0.0-5.0); FLOW 4 L/min; FMetHb 0.3 % (0.0-1.5); FO2Hb 97.7 % (94.0-98.0); MODE NASAL CANNULA; PATIENT TEMPERATURE 36.8; TOTAL HEMOGLOBIN 6.8 G/dl (13.5-17.5)
[2024-07-26] MEDS: sodium bicarbonate (8.4%) 1 mEq/ml syringe IV ONE (03:09)
--- NOTE | 2024-07-26 04:00 | NUR ---
MD Coronel states GI MD Cottrell has refused take patient to OR to treat active bleeding symptoms. MD Coronel states he will contact [facility] GI MD for consult and transfer.
[2024-07-26] MEDS: sodium bicarbonate (8.4%) inj. 100 MEQ in dextrose 5%-water 1,000 ML IV SCH (04:52)
--- NOTE | 2024-07-26 05:47 | NUR ---
MD Bahena from [facility] has accepted patient for transfer. New orders received from this doctor and agreed to by instrument and controls technician from [facility]. Will follow MD orders, will continue to monitor patient closely.
[2024-07-26 05:49] LABS: BASOPHILS % (AUTO) 0.1 % (0-1); EOSINOPHILS # (AUTO) 0.1 X10'3 (0-0.9); EOSINOPHILS % (AUTO) 0.5 % (0-6); HEMATOCRIT 24.3 % (42.0-52.0); HEMOGLOBIN 8.2 g/dl (14.0-17.9); LYMPHOCYTES # (AUTO) 1.8 X10'3 (1.1-4.8); LYMPHOCYTES % (AUTO) 11.9 % (21-51); MEAN CORPUSCULAR HEMOGLOBIN 30.3 PG (27.0-31.0); MEAN CORPUSCULAR HGB CONC 33.7 g/dL (33.0-36.5); MONOCYTES # (AUTO) 0.9 X10'3 (0-0.9); MONOCYTES % (AUTO) 5.8 % (2-12); NEUTROPHILS # (AUTO) 12.6 X10'3 (1.8-7.7); NEUTROPHILS % (AUTO) 81.7 % (42-75); PLATELET COUNT 91 X10'3 (140-440); RED CELL DISTRIBUTION WIDTH 14.7 % (11.5-14.5); WHITE BLOOD COUNT 15.4 X10'3 (4.5-11.0)
[2024-07-26] MEDS: CALCIUM GLUC 1gm/50ml NACL,iso 50 ML IV ONE (05:58)
[2024-07-26 06:09] LABS: APTT 32 SECONDS (22-32); INR 1.4 INR; PROTHROMBIN TIME 14.6 SECONDS (9.0-12.0)
[2024-07-26 06:13] LABS: ALANINE AMINOTRANSFERASE 147 U/L (12-78); ALBUMIN 2.3 G/DL (3.4-5.0); ALBUMIN/GLOBULIN RATIO 2.1 (1.1-1.5); ALKALINE PHOSPHATASE 19 IU/L (46-116); ANION GAP 6 (8-16); ASPARTATE AMINO TRANSFERASE 129 U/L (10-37); BILIRUBIN,TOTAL 1.4 MG/DL (0.1-1.0); BLOOD UREA NITROGEN 32 MG/DL (7-18); BUN/CREATININE RATIO 40.5 (10.0-20.0); CALCIUM 6.8 MG/DL (8.5-10.1); CHLORIDE 113 MMOL/L (99-107); CREATININE 0.79 MG/DL (0.60-1.10); GLUCOSE 209 MG/DL (70-104); MAGNESIUM 1.5 MG/DL (1.5-2.4); POTASSIUM 3.6 MMOL/L (3.5-5.1); SODIUM 144 MMOL/L (135-145); TOTAL PROTEIN 3.4 G/DL (6.4-8.2); eCRCL 90 ML/MIN; eGFR > 90 ML/MIN
--- NOTE | 2024-07-26 06:20 | NUR ---
Problems reprioritized. Patient report given, questions answered & plan of care reviewed with Christi Brand RN.
--- NOTE | 2024-07-26 06:33 | NUR ---
adelina laboy [phone] gave report to melanie JACK
[2024-07-26 06:53] LABS: FIBRINOGEN 120 MG/DL (177-424)
[2024-07-26] MEDS ORDERED: VANCOMYCIN LEVEL IV ONE (07:30)
--- NOTE | 2024-07-26 09:15 | NUR ---
Accompanied [facility] for transport to [facility] due to the high acuity of patient and drips running. drips running during transport Levophed vasopressin bicarb amiodarone protonix patients blood pressure, heart rate and respirations stable during transport
== END 2024-07-26 11:13 | disposition critical access hospital (66) | DRG 871 ==
LOC: ER 08:33 → UNDOADMIN 12:55 → ED HOLD 12:55 → CICU 2S 17:02
PROVIDERS: ADMIT Internal Medicine; ATTEND Internal Medicine
PROC: 30233N1 Transfusion of Nonautologous Red Blood Cells into Peripheral Vein, Percutaneous Approach (ICD-10-PCS; principal; 2024-07-24)
PROC: 30233K1 Transfusion of Nonautologous Frozen Plasma into Peripheral Vein, Percutaneous Approach (ICD-10-PCS; 2024-07-25)
PROC: B32T1ZZ Computerized Tomography (CT Scan) of Left Pulmonary Artery using Low Osmolar Contrast (ICD-10-PCS; 2024-07-25)
PROC: B3201ZZ Computerized Tomography (CT Scan) of Thoracic Aorta using Low Osmolar Contrast (ICD-10-PCS; 2024-07-25)
PROC: B32S1ZZ Computerized Tomography (CT Scan) of Right Pulmonary Artery using Low Osmolar Contrast (ICD-10-PCS; 2024-07-25)
PROC: B4201ZZ Computerized Tomography (CT Scan) of Abdominal Aorta using Low Osmolar Contrast (ICD-10-PCS; 2024-07-25)
PROC: B4241ZZ Computerized Tomography (CT Scan) of Superior Mesenteric Artery using Low Osmolar Contrast (ICD-10-PCS; 2024-07-25)
PROC: B4281ZZ Computerized Tomography (CT Scan) of Bilateral Renal Arteries using Low Osmolar Contrast (ICD-10-PCS; 2024-07-25)
PROC: B42H1ZZ Computerized Tomography (CT Scan) of Bilateral Lower Extremity Arteries using Low Osmolar Contrast (ICD-10-PCS; 2024-07-25)
PROC: B4211ZZ Computerized Tomography (CT Scan) of Celiac Artery using Low Osmolar Contrast (ICD-10-PCS; 2024-07-25)
PROC: 30233R1 Transfusion of Nonautologous Platelets into Peripheral Vein, Percutaneous Approach (ICD-10-PCS; 2024-07-25)
DX: A41.9 Sepsis, unspecified organism (principal); J15.9 Unspecified bacterial pneumonia; J96.21 Acute and chronic respiratory failure with hypoxia; R57.8 Other shock; U07.1 COVID-19; R65.21 Severe sepsis with septic shock; K92.1 Melena; D62 Acute posthemorrhagic anemia; I50.32 Chronic diastolic (congestive) heart failure; J44.0 Chronic obstructive pulmonary disease with (acute) lower respiratory infection; D50.9 Iron deficiency anemia, unspecified; G89.4 Chronic pain syndrome; F17.210 Nicotine dependence, cigarettes, uncomplicated; K21.9 Gastro-esophageal reflux disease without esophagitis; M54.9 Dorsalgia, unspecified; I48.91 Unspecified atrial fibrillation; I11.0 Hypertensive heart disease with heart failure; Z79.01 Long term (current) use of anticoagulants; Z88.0 Allergy status to penicillin; Z79.899 Other long term (current) drug therapy; Z86.16 Personal history of COVID-19
CPT/HCPCS: 36415; 36430; 36600; 71045; 71275; 74174; 80053; 82272; 82607; 82803; 82948; 83605; 83735; 83880; 84100; 84132; 84145; 84484; 85007; 85018; 85025; 85384; 85610; 85730; 86885; 86900; 86901; 86920; 87040; 87081; 93005; 94640; 94760; 96365; 96375; 99291; A4314; A4333; A4615; A6213; A6250; A6258; A6449; C1751; C1758; G0378; J0282; J0610; J0692; J1200; J1815; J1940; J2270; J2405; J2470; J3370; J3475; J3490; J7030; J7040; J7042; J7050; J7070; J7120; J7168; P9016; P9035; P9045; P9047; P9059; Q9967